=== PATIENT | male | born 1955 | race Caucasian/White ===

== ENCOUNTER 2018-04-02 07:05 | Inpatient (IN) | payer OTHER ==
[2018-04-02] VITALS (8 sets, daily range): BP systolic 100–126; BP diastolic 47–70; PULSE 51–61; RESP 16–18; TEMP 97.7–98.5; O2SAT 96–98
[~2018-04-02] VITALS: Ht 175.3 cm; Wt 88.6 kg
[~2018-04-02 07:05] MED LIST: ADVI200C9 PO; MECL25 PO; PROM25SU8 PO
[2018-04-02] MEDS ORDERED: IOHEXOL 350 MG/ML 100 ML BTL (for Cath Lab) OTHER ONE (07:06)
[2018-04-02] MEDS ORDERED: ASPIRIN 325 MG TAB PO SCH (07:45)
[2018-04-02] MEDS ORDERED: NS 1000P @30 MLS/HR (KVO) IV SCH (07:45)
[2018-04-02] MEDS ORDERED: PRIL20TA2 PO (07:52)
[2018-04-02] MEDS ORDERED: ALEV220T14 PO (07:52)
[2018-04-02] MEDS ORDERED: ISOS30TA3 PO (07:52)
[2018-04-02] MEDS ORDERED: ATOR10TA15 PO (07:52)
[2018-04-02] MEDS ORDERED: METO25TA3 PO (07:52)
[2018-04-02] MEDS ORDERED: ECASA81 PO (07:52)
[2018-04-02] MEDS ORDERED: MULTTAB67 PO (07:52)
[2018-04-02 07:57] LABS: BASOPHIL # 0.1 TH/MM3 (0-0.2); EOSINOPHIL # 0.2 TH/MM3 (0-0.4); HEMATOCRIT 45.6 % (39.0-51.0); HEMOGLOBIN 15.6 GM/DL (13.0-17.0); LYMPH % 32.2 % (9.0-44.0); LYMPHOCYTE # 1.8 TH/MM3 (1.0-4.8); MEAN CORPUSCULAR HEMOGLOBIN 29.2 PG (27.0-34.0); MEAN CORPUSCULAR HGB CONC 34.3 % (32.0-36.0); MEAN PLATELET VOLUME 10.8 FL (7.0-11.0); MONO % 11.2 % (0.0-8.0); MONOCYTE # 0.6 TH/MM3 (0-0.9); NEUT % 52.6 % (16.0-70.0); PLATELET COUNT 161 TH/MM3 (150-450); RED BLOOD COUNT 5.36 MIL/MM3 (4.50-5.90); RED CELL DISTRIBUTION WIDTH 13.4 % (11.6-17.2); WHITE BLOOD COUNT 5.7 TH/MM3 (4.0-11.0)
[2018-04-02] MEDS ORDERED: NITROGLYCERIN INJ 5 ML ONE ×2 (08:04→08:05)
[2018-04-02] MEDS ORDERED: MIDAZOLAM HCL 2 MG/2 ML VIAL ONE ×3 (08:05→09:37)
[2018-04-02] MEDS ORDERED: HEPARIN-NS/PF FLUSH BAG 2,000 ML IV FLUSH ONE (08:05)
[2018-04-02] MEDS ORDERED: VERAPAMIL HCL 5 MG/2 ML VIAL ONE (08:05)
[2018-04-02] MEDS ORDERED: HEPARIN SODIUM - IV 10,000 UNITS/10 ML VIAL ONE (08:05)
[2018-04-02 08:07] LABS: INTERNATIONAL NORMALIZED RATIO 1.1 RATIO; PROTHROMBIN TIME - PATIENT 10.9 SEC (9.8-11.6)
[2018-04-02 08:13] LABS: BICARBONATE 29.9 MEQ/L (21.0-32.0); CALCIUM 8.7 MG/DL (8.5-10.1); CREATININE 1.03 MG/DL (0.60-1.30)
[2018-04-02] MEDS ORDERED: BIVALIRUDIN 250 MG VIAL ONE (08:30)
[2018-04-02] MEDS ORDERED: CANGRELOR TETRASODIUM 50,000 MCG VIAL ONE (08:35)
[2018-04-02] MEDS ORDERED: TICAGRELOR 90 MG TAB PO ONE ×2 (08:58→10:30)
[2018-04-02] MEDS ORDERED: NITROGLYCERIN-D5W 50 MG/250 ML 250 ML ONE (09:53)
[2018-04-02] MEDS ORDERED: MORPHINE SULFATE 10 MG/ML INJ ONE (10:04)
[2018-04-02] MEDS ORDERED: SODIUM CHLOR 0.9% 1000 ML INJ 1,000 ML IV SCH (10:16)
--- NOTE | 2018-04-02 10:26 | CATHPROC ---
[employer] HIS Report Study Information Study Number Admission Scheduled Start Study Start [id number] Apr 02 2018 7:05AM 04/02/2018 Apr 02 2018 7:44AM [place] Service Cardiac Catheterization Admit Source Facility Department Other [facility] - Turbine Technician Physician and Clinical Staff Initial MD Carter, Juan Ramon Dock Coordinator Connor RN, Bhanu Recorder Andra Elmore,RT(R) Scrub Joseph, Samaria,TIERCE FILLER TECH2 Procedures Performed Procedure Location (Site) Vessel Name Coronary Angiograms LCA Left Coronary Coronary Angiograms RCA Right Coronary Drug Eluting Inflatio DIAG Prox Left Coronary Drug Eluting Inflatio LAD Dist Left Coronary Drug Eluting Inflatio LAD Prox Left Coronary L Heart Cath LV Gram-hand inj. LV LV Ventricle PTCA DIAG Prox Left Coronary PTCA LAD Dist Left Coronary PTCA LAD Prox Left Coronary PTCA ADD ON'S Wire insertion Radial (right) Radial Art. Equipment Time Sales Representative Groceries Description Size Mfg Part Number Used/Scraped WIRE, BALANCE MIDDLEWEIGHT [id number] 08:46 [employer] 190CM Used 190CM (JUAN) *[id number] WIRE, BALANCE MIDDLEWEIGHT [id number] 08:46 [employer] 190CM Used 190CM (JUAN) *[id number] TRANSDUCER, TRUWAVE [id number] 07:48 RAND OREILLY * Used W/STOCKCOCK *[id number] BALLOON, 3.0 8MM [place] [facility] [id number] 09:39 [employer] 3.0 8MM Used APEX MR *[id number] [phone] *[id number] 07:48 MEDLINE INDUSTRIES PACK, CCL CUSTOM * Used *[id number] 07:48 MEDLINE PACER PEN, SKIN DUAL W/ RULER * Used *[id number] 09:05 MEDTR[employer]IC BALLOON, 2.0 X 15MM EUPHORA 15MM Used *[id number] 08:52 [employer] BALLOON, 2.5 X 20MM EUPHORA 20MM Used *[id number] BALLOON, 4.0 X 15MM NC [id number] 09:15 MEDTR[employer]IC 15MM Used EUPHORA *[id number] 09:18 MEDTRONIC STENT, 2.0 15MM PATRICA 2.0 X 15MM Used *[id number] 09:37 [employer]IC STENT, 3.0 12MM PATRICA 3.0 12MM Used *[id number] 09:43 [employer]TR[employer]IC STENT, 3.0 8MM PATRICA 3.0 8MM Used *[id number] 08:57 [employer] STENT, 4.0 22MM PATRICA 4.0 22MM Used *[id number] 08:38 MEDTR[employer]IC/AVE EBU 3.5 Z2 GUIDE CATHETER FR 6 Used *[id number] 08:32 [employer] 30 ROSALIA INDEFLATOR Used *[id number] BAND, RADIAL COMPRESSION TR [id number] 09:52 [employer] 29CM Used LARGE 29 *[id number] 07:48 [employer] SHEATH, FR6.5 PRELUDE 11CM FR 6.5 038ACT Used *[id number] 07:48 [employer] WIRE, 3MMJ .035 180CM 180CM Used *[id number] 07:48 NAMIC MANIFOLD, 4 PORT * Used *[id number] 07:48 [employer] OMNIPAQUE, 350 MG, 150ML 150ML [id number] Used 08:32 [employer] OMNIPAQUE, 350 MG, 150ML 150ML [id number] Used 08:32 [employer]ED OMNIPAQUE, 350 MG, 50ML 50ML [id number] Used [id number] 07:48 [employer] BLANKET,WARM AIR CCL * Used *[id number] CATHETER, FR5 OPTITORQUE [id number] 08:17 [employer] FR 5 Used RADIAL TIG 4.0 *[id number] 05-7499 08:42 [employer] CATHETER, FR6 IKARI [place] 3.5 LEFT FR 6 Used *[id number] WIRE, RUNTHROUGH NS FLOPPY [id number] 09:01 [employer] 180CM Used .014 180CM *[id number] Equipment Model, Serial, Lot Number and Expiration Data Description Model Number Serial Number Lot Number Expiration Date STENT, 2.0 15MM PATRICA [id number] 11-09-2019 STENT, 3.0 12MM PATRICA [id number] 12-17-2019 STENT, 3.0 8MM PATRICA [id number] 04-04-2019 STENT, 4.0 22MM PATRICA [id number] 11-04-2019 History: Current Medications Medication Dosage/Unit Route Frequency Last Date/Time Taken ASA Beta Seth History: Allergies Allergy Reaction No Known Allergies History: Risk Factors Family History of Hypertension Dyslipidemia Previous AK Previous Heart Failure Premature CAD No Yes Yes No No Prior Valve Prior PCI Prior CABG Surgery No No No Cerebrovascular Peripheral Artery Chronic Lung On Dialysis Diabetes Disease Disease Disease No No No No No History: Symptoms/Diagnosis Selection Items Chest pain History: Stress Tests Stress or Imaging Studies Performed Yes Standard Exercise Stress Stress Test Result Stress Test Ischemia Risk/Extent Test Yes Positive High Stress Echo No Stress Test SPECT No Stress Test CMR No Cardiac CTA Coronary Calcium Score No No History: Other Current Smoker No Labs Hgb (g/dl) Hct (%) RBC (MIL/MM3) WBC (l/cumm) Platelets (thousands) 11.60-17.00 35.00-51.00 4.00-5.90 4.00-11.00 150.00-450.00 15.6 45.6 5.3 5.7 161 Glucose (mg/dl) BUN (mg/dl) Creatinine (mg/dl) BUN:Creatinine (1:x) 74.00-106.00 7.00-18.00 0.50-1.30 10.00-20.00 97 17 1.0 17 Na (meq/l) K (meq/l) Cl (meq/l) CO2 (mmol/L) Ca (mg/dl) 136.00-145.00 3.50-5.10 98.00-107.00 21.00-32.00 8.50-10.10 141 4.2 107 29.9 8.7 PT (sec) PTT (sec) INR (PTT:PT) 9.80-11.60 24.30-30.10 0.90-1.10 10.9 27.3 1.1 CPK-MB (ng/ML) 0.50-3.60 Not Drawn Medication Medication Total Dose (Bolus/Oral) Medication Total Dosage/Unit 1% XYLOCAINE 20 mL BRILLINTA 180 mg FENTANYL 100 mcg HEPARIN 4000 units MORPHINE 4 mg NTG (IC) 400 mcg OXYGEN 3 l/min RADIAL COCKTAIL 5 mL (Bolus) VERSED 6 mg Medications (Bolus/Oral) Medication Time Given Dosage/Unit Administered By Reason VERSED 04/02/2018 8:11:57 AM 2 mg Connor Bhanu TUCKER 2 mg VERSED given in lab by Bhanu Ryan RN in Left Antecubital via Peripheral IV. FENTANYL 04/02/2018 8:18:40 AM 50 mcg Bhanu Ryan RN 50 mcg FENTANYL given in lab by Bhanu Ryan RN via Peripheral IV. 1% XYLOCAINE 04/02/2018 8:20:01 AM 20 mL Juan Ramon Carter 20 mL 1% XYLOCAINE given in lab by Juan Ramon Carter in Right Radial via Subcutaneous. Ntg 200mcg Verapamil 2.5mg Heparin RADIAL COCKTAIL 04/02/2018 8:21:49 AM 5 mL (Bolus) Juan Ramon Carter 2500U 5 mL (Bolus) RADIAL COCKTAIL given in lab by Juan Ramon Carter via Radial. Using [Solution Name]. Reason: Ntg 200mcg Verapamil 2.5mg Heparin 2500U. VERSED 04/02/2018 8:23:23 AM 1 mg Bhanu Ryan RN 1 mg VERSED given in lab by Bhanu Ryan RN via Peripheral IV. OXYGEN 04/02/2018 8:28:17 AM 3 l/min Bhanu Ryan RN 3 l/min OXYGEN given in lab by Bhanu Ryan RN via Nasal. HEPARIN 04/02/2018 8:47:40 AM 4000 units Bhanu Ryan RN 4000 units HEPARIN given in lab by Bhanu Ryan RN via Peripheral IV. VERSED 04/02/2018 9:05:28 AM 1 mg Bhanu Ryan RN 1 mg VERSED given in lab by Bhanu Ryan RN via Peripheral IV. FENTANYL 04/02/2018 9:06:38 AM 50 mcg Bhanu Ryan RN 50 mcg FENTANYL given in lab by Bhanu Ryan RN via Peripheral IV. NTG (IC) 04/02/2018 9:26:38 AM 100 mcg Samaria Ruiz 100 mcg NTG (IC) given in lab by Samaria Ruiz, TIERCE FILLER TECH2 via Intra-coronary. NTG (IC) 04/02/2018 9:31:16 AM 100 mcg Samaria Ruiz 100 mcg NTG (IC) given in lab by Samaria Ruiz, TIERCE FILLER TECH2 via Intra-coronary. VERSED 04/02/2018 9:37:00 AM 1 mg Bhanu Ryan RN 1 mg VERSED given in lab by Bhanu Ryan RN via Peripheral IV. VERSED 04/02/2018 9:39:12 AM 1 mg Bhanu Ryan RN 1 mg VERSED given in lab by Bhanu Ryan RN via Peripheral IV. NTG (IC) 04/02/2018 9:41:58 AM 100 mcg Samaria Ruiz 100 mcg NTG (IC) given in lab by Samaria Ruiz RRT TECH2 via Intra-coronary. NTG (IC) 04/02/2018 9:48:37 AM 100 mcg Samaria Ruiz 100 mcg NTG (IC) given in lab by Samaria Ruiz TIERCE FILLER TECH2 via Intra-coronary. BRILLINTA 04/02/2018 9:54:45 AM 180 mg Bhanu Ryan RN 180 mg BRILLINTA given in lab by Bhanu Ryan RN in Per mouth via Oral. MORPHINE 04/02/2018 10:05:19 AM 4 mg Bhanu Ryan RN 4 mg MORPHINE given in lab by Bhanu Ryan RN via Peripheral IV. Medication (Drip) Medication Time Given Dosage/Unit Concentration/Unit Diluent (ml) Solution IV Solutions 04/02/2018 8:07:38 AM 0 mL (IV) 500 NaCl .9 IV Solutions given in lab by Bhanu Ryan RN in Left Antecubital via Peripheral IV. Pump/Drip Flow = 20 ml/hr using NaCl .9. KENGREAL BOLUS 04/02/2018 8:48:23 AM 13.5 mL 13.5 mL KENGREAL BOLUS given in lab by Bhanu Ryan RN in Left Antecubital via Peripheral IV. KENGREAL DRIP 04/02/2018 8:49:40 AM 3.991 mcg/kg/min 50 mg 250 NaCl .9 3.991 mcg/kg/min KENGREAL DRIP given in lab by Bhanu Ryan RN via Peripheral IV. Pump/Drip Flow = 10 8 ml/hr using NaCl .9 with a concentration of 50 mg in 250 ml. NITROGLYCERIN DRIP 04/02/2018 10:00:03 AM 5 mcg/min 50 mg 250 D5W 5 mcg/min NITROGLYCERIN DRIP given in lab by Bhanu Ryan RN via Peripheral IV. Pump/Drip Flow = 1.5 ml/hr using D5W with a concentration of 50 mg in 250 ml. Initial Case Assessment Cardiovascular HR Rhythm NIBP Chest Pain 54 reg 107/68 0 Edema Present Skin color Skin None Normal Warm Circulatory - Right Pulses Dorsalis Pedis Femoral Radial 2 2 2 Scale (0,1,2,3,4,d) Scale (0,1,2,3,4,d) Circulatory - Lower Extremities Color Lower Right Normal Neurological State Oriented to time-place- Alert Moves all extremities person Respiration - General Respiration Rate SpO2 (%) (B/min) 11 95 Final Case Assessment Cardiovascular HR Rhythm NIBP Chest Pain 57 reg 96/60 0 Edema Present Skin color Skin None Normal Warm Circulatory - Right Pulses Dorsalis Pedis Femoral Radial 2 2 2 Scale (0,1,2,3,4,d) Scale (0,1,2,3,4,d) Circulatory - Lower Extremities Color Lower Right Normal Neurological State Oriented to time-place- Alert Moves all extremities person Respiration - General Respiration Rate SpO2 (%) O2 (lpm) (B/min) 20 97 3 Chronological Log Time Study Chronological Log 7:59:38 Patient arrived via Bed. 7:59:45 Patient Name, D.O.B, / Armband Verified By R.N. 8:00:34 MD arrived. 8:00:52 Consent signed by the physician and the patient and verified by the Turbine Technician staff. 8:01:56 Pre-op and post- op instructions given; patient acknowledges understanding of instructions. 8:02:10 Verbal Stimulation=2 Physical Stimulation=2 Airway=2 Respiration=2 TOTAL=8. (0=absent, 1=li mited, 2=present) Vitals capture started with the following parameters, Patient=Adult, Interval=5 min, Initial Pr nfcdch=891 mmHg, 8:04:19 Deflation Rate=5 mmHg, Cuff placed on Left Arm 8:04:23 Reference ECG taken 8:04:59 HR=45 bpm, PGQL=492/67 mmhg, SpO2=95 %, Resp=12 B/min, Pain=0, Deena=10, Piañ=2 8:05:15 Allens test performed on the right radial and ulnar artery by crystal ruiz with a positive resul t 8:06:39 Patient has been NPO for Less than 6Hrs. 8:07:27 A # 20 IV was noted in the Antecubital (left). Grade = 0 IV Solutions given in lab by Bhanu Ryan RN in Left Antecubital via Peripheral IV. Pump/Drip F low = 20 ml/hr using NaCl 8:07:38 .9. Assessment: Initial Case, HR=54 BPM, Rhythm=reg, YGAP=654/68 mmhg, Chest Pain=0, Edema=None, Co chas=Normal, Skin = Warm Right Pulses: Harsha Ped=2, Femoral=2, Radial=2 8:08:10 Lower Right Extremities: Color=Normal Neurological: State=Alert, Ox3, LANE Respiration: Resp=11 B/min, SpO2=95 % 8:10:19 HR=49 bpm, LUKP=171/74 mmhg, SpO2=96.0 %, Resp=10 B/min, Pain=0, Deena=10, Piña=2 8:11:57 2 mg VERSED given in lab by Bhanu Ryan RN in Left Antecubital via Peripheral IV. 8:12:13 Right Radial and groin(s) prepped with 2% chlorhexidine, and draped after a 3 min. waiting t gera. Time Out. Correct patient, correct procedure, correct physician, power injector not loaded with contrast with surgical 8:14:16 team present. Time Out Concurred by MD and individual staff in procedure. 8:14:53 HR=53 bpm, RCJC=341/68 mmhg, SpO2=97.0 %, Resp=10 B/min, Pain=0, Deena=10, Piña=2 8:15:47 Pressure channel 1 zeroed. 8:18:40 50 mcg FENTANYL given in lab by Bhanu Ryan RN via Peripheral IV. 8:18:58 Case Start 8:19:01 Verbal Stimulation=2 Physical Stimulation=2 Airway=2 Respiration=2 TOTAL=8. (0=absent, 1=pierre ited, 2=present) 8:19:52 HR=51 bpm, ZLWX=261/68 mmhg, SpO2=97 %, Resp=16 B/min, Pain=0, Deena=10, Piña=2 8:20:01 20 mL 1% XYLOCAINE given in lab by Juan Ramon Carter in Right Radial via Subcutaneous. 8:21:23 Access site was Radial Artery.rt 8:21:29 A wire was inserted via Radial (right). 8:21:37 A SHEATH, FR6.5 PRELUDE 11CM FR 6.5 was advanced into the Radial (right) using the Percutane ous technique. 5 mL (Bolus) RADIAL COCKTAIL given in lab by Juan Ramon Carter via Radial. Using [Solution Name]. Re ason: Ntg 200mcg 8:21:49 Verapamil 2.5mg Heparin 2500U. 8:23:23 1 mg VERSED given in lab by Bhanu Ryan RN via Peripheral IV. A CATHETER, FR5 OPTITORQUE RADIAL TIG 4.0 FR 5 was advanced over a wire. OMNIPAQUE, 350 MG, 150M L 150ML 8:23:35 was used for injections. 8:24:53 HR=55 bpm, MESG=051/64 mmhg, SpO2=95 %, Resp=13 B/min, Pain=0, Deena=10, Piña=2 Recorded Pressure: Ao, HR=55, Condition=Condition 1 8:26:04 (Aorta) Ao 91/59/74 8:26:21 The LCA was injected and visualized at various angles. OMNIPAQUE, 350 MG, 150ML 150ML used. 8:28:17 3 l/min OXYGEN given in lab by Bhanu Ryan RN via Nasal. 8:29:50 HR=49 bpm, XUWU=513/63 mmhg, SpO2=96.0 %, Resp=11 B/min, Pain=0, Deena=10, Piña=2 8:30:51 The RCA was injected and visualized at various angles. OMNIPAQUE, 350 MG, 150ML 150ML used. 8:31:36 OMNIPAQUE, 350 MG, 50ML 50ML and 30 ROSALIA INDEFLATOR added. Recorded Pressure: LV, HR=53, Condition=Condition 1 8:32:54 (Left Ventricle) LV 92/8/16 8:33:15 The LV was manually injected with 9 cc's and visualized. OMNIPAQUE, 350 MG, 150ML 150ML used . Recorded Pressure: LV, Ao, HR=59, Condition=Condition 1 8:33:25 (Left Ventricle) LV 103/8/11, (Aorta) Ao 98/59/77 8:34:51 HR=50 bpm, LKPV=255/65 mmhg, SpO2=97.0 %, Resp=11 B/min, Pain=0, Deena=10, Piña=2 8:36:52 Catheter was removed A XB 3.5 GUIDE CATHETER FR 6 was advanced over a wire. OMNIPAQUE, 350 MG, 150ML 150ML was used f or 8:36:54 injections. After removing the current catheter a EBU 3.5 Z2 GUIDE CATHETER FR 6 was advanced over a WIRE, 3 MMJ .035 8:37:37 180CM 180CM. 8:39:54 HR=50 bpm, MLWN=762/65 mmhg, SpO2=99 %, Resp=13 B/min, Pain=0, Deena=10, Piña=2 After removing the current catheter a CATHETER, FR6 IKARI IL 3.5 LEFT FR 6 was advanced over a W ANMOL, 3MMJ .035 8:41:59 180CM 180CM. 8:44:55 HR=60 bpm, HCBC=880/65 mmhg, Resp=14 B/min, Pain=0, Deena=10, Piña=2 8:46:36 A WIRE, BALANCE MIDDLEWEIGHT 190CM (JUAN) 190CM was inserted via Radial (right). 8:47:40 4000 units HEPARIN given in lab by Bhanu Ryan RN via Peripheral IV. 8:48:23 13.5 mL KENGREAL BOLUS given in lab by Bhanu Ryan RN in Left Antecubital via Peripheral IV . 8:49:27 Interventional wire has crossed the lesion 3.991 mcg/kg/min KENGREAL DRIP given in lab by Bhanu Rayn RN via Peripheral IV. Pump/Drip Flow = 108 ml/hr using 8:49:40 NaCl .9 with a concentration of 50 mg in 250 ml. 8:49:58 HR=51 bpm, PTBC=596/64 mmhg, SpO2=98.0 %, Resp=13 B/min, Pain=0, Deena=10, Piña=2 A BALLOON, 2.5 X 20MM EUPHORA 20MM was inserted over WIRE, BALANCE MIDDLEWEIGHT 190CM (JUAN) 190 CM 8:51:28 via the LAD Prox. 8:52:48 Activated Clotting Time Drawn A BALLOON, 2.5 X 20MM EUPHORA 20MM over a WIRE, BALANCE MIDDLEWEIGHT 190CM (JUAN) 190CM in the L AD 8:53:48 Prox was inflated using a 30 ROSALIA INDEFLATOR at 8 rosalia for 20 sec. A BALLOON, 2.5 X 20MM EUPHORA 20MM over a WIRE, BALANCE MIDDLEWEIGHT 190CM (JUAN) 190CM in the L AD 8:54:33 Prox was inflated using a 30 ROSALIA INDEFLATOR at 14 rosalia for 30 sec. 8:54:55 HR=51 bpm, MRDJ=868/67 mmhg, SpO2=98.0 %, Resp=14 B/min, Pain=0, Deena=10, Piña=2 8:56:09 Balloon Removed. A STENT, 4.0 22MM PATRICA 4.0 22MM was advanced through a CATHETER, FR6 IKARI IL 3.5 LEFT FR 6 over a WIRE, 8:57:00 BALANCE MIDDLEWEIGHT 190CM (JUAN) 190CM. A STENT, 4.0 22MM PATRICA 4.0 22MM was deployed using a 30 ROSALIA INDEFLATOR at 12 atmospheres for 25 seconds in 8:57:19 the LAD Prox. 8:59:22 Delivery device removed 8:59:35 ACT (Normal Range 90-180) = 396 9:00:37 HR=52 bpm, FWBD=244/65 mmhg, SpO2=98.0 %, Resp=14 B/min, Pain=0, Deena=10, Piña=2 9:02:44 A WIRE, RUNTHROUGH NS FLOPPY .014 180CM 180CM was inserted via Radial (right). 9:04:42 runthrough directed down diagonal 9:05:00 HR=52 bpm, FNHU=565/59 mmhg, SpO2=97.0 %, Resp=15 B/min, Pain=0, Deena=10, Piña=2 A BALLOON, 2.0 X 15MM EUPHORA 15MM was inserted over WIRE, RUNTHROUGH NS FLOPPY .014 180CM 180CM via 9:05:15 the DIAG Prox. 9:05:28 1 mg VERSED given in lab by Bhanu Ryan RN via Peripheral IV. 9:06:38 50 mcg FENTANYL given in lab by Bhanu Ryan RN via Peripheral IV. A BALLOON, 2.0 X 15MM EUPHORA 15MM over a WIRE, RUNTHROUGH NS FLOPPY .014 180CM 180CM in the KAREN G 9:08:13 Prox was inflated using a 30 ROSALIA INDEFLATOR at 8 rosalia for 17 sec. A BALLOON, 2.0 X 15MM EUPHORA 15MM over a WIRE, RUNTHROUGH NS FLOPPY .014 180CM 180CM in the KAREN G 9:08:59 Prox was inflated using a 30 ROSALIA INDEFLATOR at 8 rosalia for 20 sec. 9:09:33 The LCA was injected and visualized at various angles. OMNIPAQUE, 350 MG, 150ML 150ML used. 9:09:51 Balloon Removed. 9:09:59 HR=55 bpm, NIBP=97/63 mmhg, SpO2=96.0 %, Resp=9 B/min, Pain=0, Deena=10, Piña=2 A BALLOON, 2.0 X 15MM EUPHORA 15MM was inserted over WIRE, RUNTHROUGH NS FLOPPY .014 180CM 180CM via 9:11:08 the DIAG Prox. A BALLOON, 2.0 X 15MM EUPHORA 15MM over a WIRE, RUNTHROUGH NS FLOPPY .014 180CM 180CM in the KAREN G 9:11:19 Prox was inflated using a 30 ROSALIA INDEFLATOR at 14 rosalia for 34 sec. 9:14:13 Balloon Removed. 9:14:58 HR=58 bpm, NIBP=91/64 mmhg, SpO2=94.0 %, Resp=16 B/min, Pain=0, Deena=10, Piña=2 A BALLOON, 4.0 X 15MM NC EUPHORA 15MM was inserted over WIRE, BALANCE MIDDLEWEIGHT 190CM (JUAN) 9:16:51 190CM via the LAD Prox. A STENT, 2.0 15MM PATRICA 2.0 X 15MM was advanced through a CATHETER, FR6 IKARI IL 3.5 LEFT FR 6 ov er a WIRE, 9:17:38 RUNTHROUGH NS FLOPPY .014 180CM 180CM. 9:19:57 HR=52 bpm, WGGC=324/60 mmhg, SpO2=97.0 %, Resp=16 B/min, Pain=0, Deena=10, Piña=2 A STENT, 2.0 15MM PATRICA 2.0 X 15MM was deployed using a 30 ROSALIA INDEFLATOR at 18 atmospheres for 6 0 seconds 9:21:40 in the DIAG Prox. A BALLOON, 4.0 X 15MM NC EUPHORA 15MM over a WIRE, BALANCE MIDDLEWEIGHT 190CM (JUAN) 190CM in th e 9:22:32 LAD Prox was inflated using a 30 ROSALIA INDEFLATOR at 18 rosalia for 50 sec. 9:23:29 Delivery device removed 9:24:46 The LCA was injected and visualized at various angles. OMNIPAQUE, 350 MG, 150ML 150ML used. 9:25:00 HR=51 bpm, VIGW=401/64 mmhg, SpO2=96 %, Resp=17 B/min, Pain=0, Deena=10, Piña=2 9:26:38 100 mcg NTG (IC) given in lab by Samaria Ruiz, TIERCE FILLER TECH2 via Intra-coronary. 9:27:26 Balloon Removed. 9:30:01 HR=54 bpm, QMMW=426/60 mmhg, SpO2=96.0 %, Resp=17 B/min, Pain=0, Deena=10, Piña=2 9:31:16 100 mcg NTG (IC) given in lab by Samaria Ruiz TIERCE FILLER TECH2 via Intra-coronary. 9:32:29 The LCA was injected and visualized at various angles. OMNIPAQUE, 350 MG, 150ML 150ML used. 9:35:00 HR=60 bpm, ZWCU=117/66 mmhg, SpO2=97.0 %, Resp=19 B/min, Pain=0, Deena=10, Piña=2 A STENT, 3.0 12MM PATRICA 3.0 12MM was advanced through a CATHETER, FR6 IKARI IL 3.5 LEFT FR 6 over a WIRE, 9:36:36 BALANCE MIDDLEWEIGHT 190CM (JUAN) 190CM. 9:37:00 1 mg VERSED given in lab by Bhanu Ryan RN via Peripheral IV. A STENT, 3.0 12MM PATRICA 3.0 12MM was deployed using a 30 ROSALIA INDEFLATOR at 12 atmospheres for 42 seconds in 9:37:10 the LAD Dist. 9:38:09 Delivery device removed A BALLOON, 3.0 8MM NC QUANTUM APEX MR 3.0 8MM was inserted over WIRE, BALANCE MIDDLEWEIGHT 190CM 9:38:32 (JUAN) 190CM via the LAD Dist. 9:39:12 1 mg VERSED given in lab by Bhanu Ryan RN via Peripheral IV. A BALLOON, 3.0 8MM NC QUANTUM APEX MR 3.0 8MM over a WIRE, BALANCE MIDDLEWEIGHT 190CM (JUAN) 190 CM 9:39:55 in the LAD Dist was inflated using a 30 ROSALIA INDEFLATOR at 20 rosalia for 20 sec. 9:40:01 HR=54 bpm, KMCY=469/63 mmhg, SpO2=97.0 %, Resp=17 B/min, Pain=0, Deena=10, Piña=2 9:41:58 100 mcg NTG (IC) given in lab by Samaria Ruiz RRT TECH2 via Intra-coronary. 9:42:21 The LCA was injected and visualized at various angles. OMNIPAQUE, 350 MG, 150ML 150ML used. A STENT, 3.0 8MM PATRICA 3.0 8MM was advanced through a CATHETER, FR6 IKARI IL 3.5 LEFT FR 6 over a WIRE, 9:43:53 BALANCE MIDDLEWEIGHT 190CM (JUAN) 190CM. A STENT, 3.0 8MM PATRICA 3.0 8MM was deployed using a 30 ROSALIA INDEFLATOR at 8 atmospheres for 22 sec onds in the 9:44:05 LAD Dist. 9:45:02 HR=56 bpm, GPFX=766/64 mmhg, SpO2=96.0 %, Resp=23 B/min, Pain=0, Deena=10, Piña=2 9:47:07 Re-inflated the stent balloon in the LAD Dist to 12 ROSALIA for 20 seconds. 9:48:04 Delivery device removed 9:48:37 100 mcg NTG (IC) given in lab by Samaria Ruiz RRT TECH2 via Intra-coronary. 9:49:29 The LCA was injected and visualized at various angles. OMNIPAQUE, 350 MG, 150ML 150ML used. 9:50:42 HR=59 bpm, NIBP=96/60 mmhg, SpO2=95.0 %, Resp=17 B/min, Pain=0, Deena=10, Piña=2 Assessment: Final Case, HR=57 BPM, Rhythm=reg, NIBP=96/60 mmhg, Chest Pain=0, Edema=None, Color= Normal, Skin = Warm Right Pulses: Harsha Ped=2, Femoral=2, Radial=2 9:51:35 Lower Right Extremities: Color=Normal Neurological: State=Alert, Ox3, LANE Respiration: Resp=20 B/min, SpO2=97 %, O2=3 lpm 9:52:17 Wire removed 9:52:19 Catheter was removed 9:53:28 Case End 9:53:38 Catheter(s) removed without difficulty 9:53:50 Sheath removed; pressure applied to access site. Radial Compression Device Used. 15 mLs of air placed in BAND, RADIAL COMPRESSION TR LARGE 29 29C M. Affected 9:53:58 hand ~O2 SATURATION~ % O2 saturation. 9:54:14 Sterile dressing applied to site 9:54:14 No case complications noted. 9:54:16 Cine recording checked. 9:54:20 Bedside Report will be given. 9:54:22 Implantable Device card placed in patient's chart. 9:54:27 Verbal Stimulation=2 Physical Stimulation=2 Airway=2 Respiration=2 TOTAL=8. (0=absent, 1=l imited, 2=present) 9:54:45 180 mg BRILLINTA given in lab by Bhanu Ryan RN in Per mouth via Oral. 9:55:00 HR=54 bpm, KTEO=605/65 mmhg, SpO2=96.0 %, Resp=14 B/min, Pain=0, Deena=10, Piña=2 9:55:06 A Left Heart Cath was performed. 9:55:12 Clinical correlaton risk stratification. 5 mcg/min NITROGLYCERIN DRIP given in lab by Bhanu Ryan RN via Peripheral IV. Pump/Drip Flow = 1.5 ml/hr using 10:00:03 D5W with a concentration of 50 mg in 250 ml. 10:00:05 HR=50 bpm, JHOH=298/69 mmhg, SpO2=97 %, Resp=20 B/min, Pain=0, Deena=10, Piña=2 10:05:19 4 mg MORPHINE given in lab by Bhanu Ryan RN via Peripheral IV. 10:05:41 HR=57 bpm, ALYV=312/71 mmhg, ExY0=795.0 %, Resp=15 B/min, Pain=0, Deena=10, Piña=2 End Study - Contrast Media Used In Study Contrast Total Opened (mL) Total Used (mL) Total Wasted (mL) Omnipaque 150 150 0 End Study - Maximum Contrast Load Max Contrast Load (mL) 450.9 End Study - Radiation Exposure Fluoro Time (minutes) 31.3 End Study - Sheaths Sheaths Pulled By Sheath Hold Time (min) Samaria Ruiz End Study - Patient Disposition Complications Transferred To Interventional Outcome No Outpatient Bed successful
[2018-04-02] MEDS ORDERED: ACETAMINOPHEN 325 MG TAB PO PRN (10:30)
[2018-04-02] MEDS ORDERED: SODIUM CHLORIDE 0.9% FLUSH 10 ML FLUSH IV FLUSH PRN (10:30)
[2018-04-02] MEDS ORDERED: oxyCODONE/ACETAMINOPHEN 5 MG/325 MG TAB PO PRN (10:30)
[2018-04-02] MEDS ORDERED: oxyCODONE/ACETAMINOPHEN 10 MG/325 MG TAB PO PRN (10:30)
[2018-04-02] MEDS ORDERED: ONDANSETRON HCL 4 MG/2 ML VIAL IVP PRN (10:30)
[2018-04-02] MEDS ORDERED: BACITRACIN OINT 0.9 GM PKT TOP ONE (10:30)
[2018-04-02] MEDS ORDERED: MISC INFORMATION XX ONE (10:30)
--- NOTE | 2018-04-02 10:44 | MA ---
cc: Juan Ramon Carter MD DATE: 04/02/2018 PROCEDURE PERFORMED: Left heart catheterization, left ventriculography, coronary angiography, complex balloon angioplasty and stenting of the proximal left anterior descending coronary artery, balloon angioplasty and stenting of the major diagonal branch of the left anterior descending coronary artery, Tandem stenting of the distal left anterior descending coronary artery. COMPLICATIONS: Abrupt vessel closure of the diagonal that was successfully opened. CONTRAST LOAD: 280 mL. BRIEF HISTORY: Barber Cerrato is a 62-year-old man with a history of premature coronary artery disease in his father and hyperlipidemia, who has recently developed unstable angina. He had a grossly positive treadmill test. DESCRIPTION OF PROCEDURE: The patient was brought to the cardiac catheterization lab in fasting state. He was sedated with intravenous Versed and fentanyl. Using 1 percent lidocaine for local anesthesia, a Terumo slender sheath was easily inserted into the right radial artery. Next, a [place] catheter was used to image both coronary arteries in the left ventricle. He had complex disease in the LAD that was severe. The decision was made to proceed with intervention. I tried a XB 3.5 guide and an EBU 0.035 guide, but neither conformed properly to engage the left main. I then went to an Ik[place] 3.5 guide and this engaged the left main quite nicely. I then wired the LAD with a BMW wire. I predilated the proximal LAD using a 2.5 x 20 mm balloon. I then stented the proximal LAD using a 4.0 x 22 mm Emilio that was deployed at 12 atmospheres. The LAD looked good, but the major diagonal branch completely closed at its origin. The patient had chest pain with marked ST elevation, mild hypotension and bradycardia. I then used a Terumo Runthrough wire and with mild difficulty was able to wire the diagonal branch. I then ballooned the diagonal branch several times with a 2.0 balloon. Partial flow was reestablished, but there persisted an ostial lesion of the diagonal with poor flow and persistent ST elevation. I therefore decided I had to stent the diagonal branch. I placed a 4.0 x 15 noncompliant balloon in the LAD and a 2.0 x 15 mm Emilio stent in the diagonal. The stent in the diagonal was positioned so that it covered the ostium. This stent was inflated up to 18 atmospheres. Then, simultaneous with this, the balloon that was in the proximal LAD was inflated to 18 atmospheres. Both balloons were deflated. Nitroglycerin had to be administered. The flow in the diagonal branch came back. The LAD result still looked good with no dissection and good stent apposition. ST segments improved. Blood pressure improved. I then stented the distal LAD using a 3.0 x 12 mm Hiller stent that was deployed at 12 atmospheres. There was still a waist in the center of the balloon. This was treated with a noncompliant 3.0 balloon with resolution, but there was a stenosis just on the proximal edge of the stent, so a second 8 mm 3.0 Emilio stent was placed in overlapping fashion, inflated to 8 atmospheres. The balloon was then advanced a few millimeters and then reinflated to 12 atmospheres. The distal LAD now showed a good result. There was YNES 3 flow now in the LAD and diagonal branch. There was a mid LAD lesion felt to only be about 40-50%, which I decided to leave alone. The patient had some mild residual pain. Procedure was done with IV heparin and intravenous cangrelor and he was loaded with Brilinta at the end of the case. The guide was removed and the Terumo band placed. FINDINGS: 1. Hemodynamics: Left ventricular pressure was 103/8 with an end diastolic pressure of 11. Aortic pressure is 98/59 with a mean of 77. There was no gradient during pullback from the left ventricle to the aorta. 2. Left ventriculography: Left ventriculography shows normal left ventricular function with an EF of 65%. 3. Coronary angiography: Left main coronary artery appears normal. Left anterior descending artery has a proximal long 95% tubular stenosis. The first diagonal branch comes off the proximal edge of this and had about a 50% ostial stenosis. The mid LAD has a smooth 40-50% stenosis and then distally there is a 75% stenosis. Irregularities are seen throughout the vessel. The circumflex artery has irregularities proximally. The major diagonal branch has an eccentric 20% ostial stenosis. The distal circumflex artery appears normal. The right coronary artery demonstrates diffuse disease. Proximally, there is about 25% eccentric stenosis. There is about 35% mid stenosis and then distally is a slightly tortuous tubular stenosis, about 70% in severity. Beyond this is the posterior descending artery branch and small posterolateral branches. 4. Results of stenting: Following stenting of the proximal LAD, the distal LAD and the diagonal branch showed 0% residual stenosis had been achieved in all vessels with jain of YNES 3 flow by the end of the case CONCLUSIONS: 1. Normal left ventricular systolic function. 2. Normal hemodynamics. 3. Two vessel coronary artery disease, which is particularly severe in the left anterior descending. 4. Complex intervention on the proximal left anterior descending complicated by closure of the diagonal branch and requiring stenting of the diagonal branch and kissing balloons. Successful stenting of the distal left anterior descending. PLAN: I am not going to intervene on the right coronary artery at this time. Probably get a nuclear stress test to see how much ischemia he has down the road. He has been loaded with Brilinta. He will stay in the hospital at least overnight. MD THEO Nayak/JUAN CARLOS , 10:12 AM , 10:42 AM
[2018-04-02] MEDS ORDERED: PROMETHAZINE INJ 25 MG/ML VIAL IM PRN (12:15)
--- NOTE | 2018-04-02 19:43 | EKG ---
Date Performed: 04/02/2018 Time Performed: 07:43:28 PTAGE: 62 years EKG: Sinus bradycardia. Normal ECG except for rate Since the PREVIOUS TRACING , no significant change noted PREVIOUS TRACIN08/09/2009 08.48 DOCTOR: JuanR amon Carter Interpretating Date/Time 04/02/2018 19:42:26
[2018-04-02] MEDS: SODIUM CHLORIDE 0.9% FLUSH 10 ML FLUSH IV FLUSH SCH (21:00)
[2018-04-02] MEDS ORDERED: TEMAZEPAM 15 MG CAP PO PRN (21:00)
[2018-04-03] VITALS (19 sets, daily range): BP systolic 108–141; BP diastolic 65–82; PULSE 52–68; RESP 14–18; TEMP 98–98.4; O2SAT 96–97
[2018-04-03 06:24] LABS: AUTOMATED NEUTROPHIL # 7.3 TH/MM3 (1.8-7.7); BASOPHIL % 0.2 % (0.0-2.0); EOSINOPHIL # 0.1 TH/MM3 (0-0.4); EOSINOPHIL % 1.4 % (0.0-4.0); HEMATOCRIT 43.4 % (39.0-51.0); HEMOGLOBIN 14.8 GM/DL (13.0-17.0); LYMPH % 13.9 % (9.0-44.0); LYMPHOCYTE # 1.4 TH/MM3 (1.0-4.8); MEAN CELL VOLUME 85.3 FL (80.0-100.0); MEAN CORPUSCULAR HGB CONC 34.1 % (32.0-36.0); MEAN PLATELET VOLUME 10.7 FL (7.0-11.0); MONO % 9.2 % (0.0-8.0); MONOCYTE # 0.9 TH/MM3 (0-0.9); NEUT % 75.3 % (16.0-70.0); PLATELET COUNT 144 TH/MM3 (150-450); RED BLOOD COUNT 5.09 MIL/MM3 (4.50-5.90); RED CELL DISTRIBUTION WIDTH 13.3 % (11.6-17.2); WHITE BLOOD COUNT 9.8 TH/MM3 (4.0-11.0)
[2018-04-03 06:55] LABS: BICARBONATE 26.2 MEQ/L (21.0-32.0); CALCIUM 8.3 MG/DL (8.5-10.1); CREATININE 0.92 MG/DL (0.60-1.30)
[2018-04-03 06:57] LABS: CHOLESTEROL/ HDL RATIO 2.94 RATIO
--- NOTE | 2018-04-03 08:54 | PD.CARD.PN ---
Subjective Subjective Remarks no angina Objective Medications Current Medications Medications (Trade) Dose Ordered Sig/Sonja Route Start Time Stop Time Status Last Admin (Aspirin) 325 mg ELEMENTARY TUTOR PO 04/02/18 07:45 04/05/18 07:44 (Tylenol) 325 mg Q4H PRN PO 04/02/18 10:30 (Percocet 5-325 Mg) 1 tab Q4H PRN PO 04/02/18 10:30 04/02/18 17:00 (Percocet 10-325 Mg) 1 tab Q4H PRN PO 04/02/18 10:30 (Restoril) 15 mg HS PRN PO 04/02/18 21:00 (Aspirin Chew) 81 mg DAILY PO 04/03/18 09:00 (NS Flush) 2 ml UNSCH PRN IV FLUSH 04/02/18 10:30 (NS Flush) 2 ml BID IV FLUSH 04/02/18 21:00 (Lipitor) 80 mg DAILY PO 04/03/18 09:00 (Phenergan Inj) 12.5 mg Q6H PRN IM 04/02/18 12:15 (Brilinta) 90 mg BID PO 04/03/18 09:00 UNV Vital Signs / I&O Vital Signs Date Time Temp Pulse Resp B/P (MAP) Pulse Ox O2 Delivery O2 Flow Rate FiO2 04/02/18 21:54 60 16 118/60 (79) 97 04/02/18 17:01 58 04/02/18 16:00 58 04/02/18 15:30 98.4 60 18 100/47 (64) 96 04/02/18 15:00 58 04/02/18 14:00 58 04/02/18 13:30 98.5 61 18 111/70 (84) 98 04/02/18 10:22 98 Room Air 04/02/18 10:00 51 110/65 I/O 04/02/18 04/02/18 04/02/18 04/03/18 04/03/18 04/03/18 07:00 15:00 23:00 07:00 15:00 23:00 Intake Total 240 ml 240 ml Output Total 2225 ml 200 ml Balance -1985 ml 40 ml Intake Oral 240 ml 240 ml Output Urine Total 2225 ml 200 ml # Voids 1 # Bowel Movements 0 Physical Exam GENERAL: Well developed, well nourished. No acute distress. HEENT: Jugular venous pressure is normal. CHEST: Lungs clear to auscultation bilaterally. Unlabored respiratory effort. CARDIAC: Regular rate and rhythm without S3, S4, or murmur. ABDOMEN: Soft, nontender, no hepatosplenomegaly. Bowel sounds present. EXTREMITIES: No clubbing, cyanosis, or edema. Right wrist OK, pulse intact Laboratory Laboratory Tests Test 04/03/18 04:42 White Blood Count 9.8 TH/MM3 Red Blood Count 5.09 MIL/MM3 Hemoglobin 14.8 GM/DL Hematocrit 43.4 % Mean Corpuscular Volume 85.3 FL Mean Corpuscular Hemoglobin 29.0 PG Mean Corpuscular Hemoglobin Concent 34.1 % Red Cell Distribution Width 13.3 % Platelet Count 144 TH/MM3 Mean Platelet Volume 10.7 FL Neutrophils (%) (Auto) 75.3 % Lymphocytes (%) (Auto) 13.9 % Monocytes (%) (Auto) 9.2 % Eosinophils (%) (Auto) 1.4 % Basophils (%) (Auto) 0.2 % Neutrophils # (Auto) 7.3 TH/MM3 Lymphocytes # (Auto) 1.4 TH/MM3 Monocytes # (Auto) 0.9 TH/MM3 Eosinophils # (Auto) 0.1 TH/MM3 Basophils # (Auto) 0.0 TH/MM3 CBC Comment DIFF FINAL Differential Comment Blood Urea Nitrogen 12 MG/DL Creatinine 0.92 MG/DL Random Glucose 83 MG/DL Calcium Level 8.3 MG/DL Sodium Level 144 MEQ/L Potassium Level 3.5 MEQ/L Chloride Level 108 MEQ/L Carbon Dioxide Level 26.2 MEQ/L Anion Gap 10 MEQ/L Estimat Glomerular Filtration Rate 84 ML/MIN Total Creatine Kinase 575 U/L Creatine Kinase MB 52.2 NG/ML Creatine Kinase MB % 9.1 % Triglycerides Level 111 MG/DL Cholesterol Level 112 MG/DL LDL Cholesterol 52 MG/DL HDL Cholesterol 38.0 MG/DL Cholesterol/HDL Ratio 2.94 RATIO Assessment and Plan Problem List: (1) Stented coronary artery ICD Codes: Z95.5 - Presence of coronary angioplasty implant and graft Plan: cont ASA 81, Brilinta 90 mg bid (2) Family history of coronary artery disease ICD Codes: Z82.49 - Family history of ischemic heart disease and other diseases of the circulatory system (3) Hyperlipidemia ICD Codes: E78.5 - Hyperlipidemia, unspecified Plan: atorva 80 (4) Non-STEMI (non-ST elevated myocardial infarction) ICD Codes: I21.4 - Non-ST elevation (NSTEMI) myocardial infarction Permanent Comment: Secondary to abrupt closure of his first diagonal jailed by LAD stent with successful PTCA stent of diagonal and kissing balloons LAD/ diagonal. Last Edited By: Juan Ramon Carter MD on April 03, 2018 08:53 (5) Coronary artery disease ICD Codes: I25.10 - Atherosclerotic heart disease of [place] coronary artery without angina pectoris Permanent Comment: LAD and diagonal revascularized. Residual RCA disease to be assessed at a future date. Last Edited By: Juan Ramon Carter MD on April 03, 2018 08:54 Juan Ramon Carter MD April 03, 2018 08:54
[2018-04-03] MEDS: SODIUM CHLORIDE 0.9% FLUSH 10 ML FLUSH IV FLUSH SCH ×2 (09:00→22:18)
[2018-04-03] MEDS ORDERED: ATORVASTATIN 80 MG TAB PO SCH (09:00)
[2018-04-03] MEDS: METOPROLOL TARTRATE 25 MG TAB PO SCH ×2 (10:29→21:00)
[2018-04-03] MEDS: ASPIRIN 81 MG CHEW TAB PO SCH (10:29)
[2018-04-03] MEDS: ISOSORBIDE MONONITRATE 30 MG CR TAB (IMDUR) PO SCH (10:29)
[2018-04-03] MEDS: TICAGRELOR 90 MG TAB PO SCH ×2 (10:30→22:19)
[2018-04-04] VITALS (12 sets, daily range): BP systolic 102–114; BP diastolic 69–71; PULSE 50–62; RESP 16–18; TEMP 97.6–98; O2SAT 96–99
[2018-04-04] MEDS: ISOSORBIDE MONONITRATE 30 MG CR TAB (IMDUR) PO SCH (06:54)
--- NOTE | 2018-04-04 08:25 | EKG ---
Date Performed: 04/03/2018 Time Performed: 04:50:28 PTAGE: 62 years EKG: Sinus rhythm Inferior ST-T changes are nonspecific Borderline ECG PREVIOUS TRACING : 04/02/2018 07.43 DOCTOR: Zhang Chavira Interpretating Date/Time 04/04/2018 08:24:51
[2018-04-04] MEDS: METOPROLOL TARTRATE 25 MG TAB PO SCH (09:13)
[2018-04-04] MEDS: TICAGRELOR 90 MG TAB PO SCH (09:13)
[2018-04-04] MEDS: ASPIRIN 81 MG CHEW TAB PO SCH (09:19)
[2018-04-04] MEDS: SODIUM CHLORIDE 0.9% FLUSH 10 ML FLUSH IV FLUSH SCH (09:21)
[2018-04-04] MEDS ORDERED: ATOR80TA45 PO (09:29)
[2018-04-04] MEDS ORDERED: METO25TA3 PO (09:29)
[2018-04-04] MEDS ORDERED: BRIL90TA PO (09:29)
[2018-04-04] MEDS ORDERED: NITR0.4S SL (09:29)
[2018-04-04] MEDS ORDERED: ISOS30TA3 PO (09:29)
[2018-04-04] MEDS ORDERED: NITROGLYCERIN 0.4 MG SL 25 TABS/BTL SL PRN (09:30)
--- NOTE | 2018-04-04 09:30 | PD.CARD.PN ---
Subjective Subjective Remarks no angina Objective Medications Current Medications Medications (Trade) Dose Ordered Sig/Sonja Route Start Time Stop Time Status Last Admin (Aspirin) 325 mg GRANITE POLISHER PO 04/02/18 07:45 04/05/18 07:44 (Tylenol) 325 mg Q4H PRN PO 04/02/18 10:30 (Percocet 5-325 Mg) 1 tab Q4H PRN PO 04/02/18 10:30 04/02/18 17:00 (Percocet 10-325 Mg) 1 tab Q4H PRN PO 04/02/18 10:30 (Restoril) 15 mg HS PRN PO 04/02/18 21:00 (Aspirin Chew) 81 mg DAILY PO 04/03/18 09:00 04/04/18 09:19 (NS Flush) 2 ml UNSCH PRN IV FLUSH 04/02/18 10:30 (NS Flush) 2 ml BID IV FLUSH 04/02/18 21:00 04/04/18 09:21 (Phenergan Inj) 12.5 mg Q6H PRN IM 04/02/18 12:15 (Brilinta) 90 mg BID PO 04/03/18 09:00 04/04/18 09:13 (Imdur) 30 mg DAILY@07 PO 04/03/18 09:00 04/04/18 06:54 (Lopressor) 12.5 mg Q12HR PO 04/03/18 09:00 04/04/18 09:13 (Lipitor) 40 mg DAILY PO 04/05/18 09:00 (Nitrostat Sl) 0.4 mg Q5M PRN SL 04/04/18 09:30 Vital Signs / I&O Vital Signs Date Time Temp Pulse Resp B/P (MAP) Pulse Ox O2 Delivery O2 Flow Rate FiO2 04/04/18 08:00 56 04/04/18 07:37 97.6 56 16 114/69 (84) 97 04/04/18 07:00 62 04/04/18 06:00 56 04/04/18 05:00 62 04/04/18 04:00 98.0 61 18 107/71 (83) 99 04/04/18 04:00 53 04/04/18 03:00 58 04/04/18 02:00 52 04/04/18 01:00 50 04/04/18 00:00 97.7 59 18 102/71 (81) 96 04/04/18 00:00 51 04/03/18 23:00 52 04/03/18 22:00 56 04/03/18 21:00 54 04/03/18 20:00 98.0 58 18 108/70 (83) 96 04/03/18 20:00 56 04/03/18 19:00 60 04/03/18 18:00 64 04/03/18 17:00 62 04/03/18 16:18 98.0 66 14 110/65 (80) 96 04/03/18 16:00 60 04/03/18 15:00 68 04/03/18 14:00 60 04/03/18 13:00 60 04/03/18 12:00 59 04/03/18 11:30 98.4 59 14 120/69 (86) 04/03/18 11:00 68 04/03/18 10:00 60 I/O 04/03/18 04/03/18 04/03/18 04/04/18 04/04/18 04/04/18 07:00 15:00 23:00 07:00 15:00 23:00 Intake Total 1280 ml Output Total 1350 ml 300 ml Balance -70 ml -300 ml Intake Oral 1280 ml Output Urine Total 1350 ml 300 ml # Bowel Movements 0 Physical Exam GENERAL: Well developed, well nourished. No acute distress. HEENT: Jugular venous pressure is normal. CHEST: Lungs clear to auscultation bilaterally. Unlabored respiratory effort. CARDIAC: Regular rate and rhythm without S3, S4, or murmur. ABDOMEN: Soft, nontender, no hepatosplenomegaly. Bowel sounds present. EXTREMITIES: No clubbing, cyanosis, or edema. Right wrist OK, pulse intact Assessment and Plan Problem List: (1) Stented coronary artery ICD Codes: Z95.5 - Presence of coronary angioplasty implant and graft (2) Family history of coronary artery disease ICD Codes: Z82.49 - Family history of ischemic heart disease and other diseases of the circulatory system (3) Hyperlipidemia ICD Codes: E78.5 - Hyperlipidemia, unspecified (4) Non-STEMI (non-ST elevated myocardial infarction) ICD Codes: I21.4 - Non-ST elevation (NSTEMI) myocardial infarction Permanent Comment: Secondary to abrupt closure of his first diagonal jailed by LAD stent with successful PTCA stent of diagonal and kissing balloons LAD/ diagonal. Last Edited By: Juan Ramon Carter MD on April 03, 2018 08:53 (5) Coronary artery disease ICD Codes: I25.10 - Atherosclerotic heart disease of [place] coronary artery without angina pectoris Permanent Comment: LAD and diagonal revascularized. Residual RCA disease to be assessed at a future date. Last Edited By: Juan Ramon Carter MD on April 03, 2018 08:54 Assessment and Plan stable for discharge. OV 1-2 weeks Juan Ramon Carter MD April 04, 2018 09:30
--- NOTE | 2018-04-04 10:15 | MD ---
cc: Juan Ramon Carter MD DATE OF DISCHARGE: DISCHARGE DIAGNOSES: 1. Severe coronary artery disease. 2. Status post stenting of the proximal left anterior descending, distal left anterior descending and rescue stenting of the first diagonal branch of the left anterior descending. 3. Small non-ST segment elevation myocardial infarction secondary to transient vessel closure of the diagonal branch during percutaneous coronary intervention. 4. Family history of premature coronary artery disease. 5. Hyperlipidemia. 6. Unstable angina. BRIEF HISTORY AND HOSPITAL COURSE: Barber Moore is a 62-year-old man with a family history of premature coronary artery disease and hyperlipidemia, who recently developed unstable angina and flunked his stress test. He was brought into the hospital for cardiac catheterization, where he was found to have severe coronary artery disease. 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 He had critical disease of the LAD as well as significant disease of the right coronary artery. He underwent stenting of the proximal LAD, complicated by abrupt vessel closure of the diagonal branch, which was successfully rescued with stenting of the diagonal branch and requiring kissing balloon inflations. He also has tandem stenting of the distal LAD lesion. This was performed successfully. He had resolution of his angina. He did rule in for a small non-ST segment elevation myocardial infarction with a CPK of 575. He was watched in the hospital for an extra day and was stable, and he is being discharged home. DISCHARGE MEDICATIONS: Include: 1. Aspirin 81 mg daily. 2. Brilinta 90 mg p.o. b.i.d. 3. Atorvastatin 40 mg daily. 4. Metoprolol 25 mg p.o. b.i.d. 5. Imdur 30 mg daily. 6. Nitroglycerin sublingual p.r.n. DISCHARGE INSTRUCTIONS: He is to pursue No strenuous activity. He is to follow a heart healthy diet. He is to only do general activities with his right wrist and arm. He is to followup with Dr. Carter in my office in 1-2 weeks. He is to report any chest pain or chest discomfort or come to the ER. MD THEO Nayak/JUAN CARLOS , 09:34 AM , 10:14 AM
[2018-04-05] MEDS ORDERED: ATORVASTATIN 80 MG TAB PO SCH (09:00)
== END 2018-04-04 11:49 | disposition home or self-care (01) | DRG 246 ==
LOC: HDOC 07:05 → HDIC 07:05 → HDOC 13:23 → HCIS 13:24
PROVIDERS: ADMIT Internal Medicine Cardiovascular Disease; ATTEND Internal Medicine Cardiovascular Disease
PROC: 4A023N7 Measurement of Cardiac Sampling and Pressure, Left Heart, Percutaneous Approach (ICD-10-PCS; 2018-04-02)
PROC: B2151ZZ Fluoroscopy of Left Heart using Low Osmolar Contrast (ICD-10-PCS; 2018-04-02)
PROC: B2111ZZ Fluoroscopy of Multiple Coronary Arteries using Low Osmolar Contrast (ICD-10-PCS; 2018-04-02)
PROC: 027137Z Dilation of Coronary Artery, Two Arteries with Four or More Drug-eluting Intraluminal Devices, Percutaneous Approach (ICD-10-PCS; principal; 2018-04-02 07:30)
DX: I25.110 Atherosclerotic heart disease of native coronary artery with unstable angina pectoris (principal); I21.4 Non-ST elevation (NSTEMI) myocardial infarction; E78.5 Hyperlipidemia, unspecified; Z82.49 Family history of ischemic heart disease and other diseases of the circulatory system
CPT/HCPCS: 80048; 80061; 82550; 82552; 85002; 85025; 85610; 85730; 92928; 92929; 93005; 93458; 99152; 99153; C1725; C1769; C1874; C1887; C1893; C9460; J0583; J1644; J2250; J2270; J3010; J7030; Q9967

== ENCOUNTER 2018-04-06 14:36 | Emergency (ER) | payer OTHER ==
[~2018-04-06] VITALS: Ht 177.8 cm; Wt 88.0 kg
[~2018-04-06 14:36] MED LIST changes: -ADVI200C9 PO; +ATOR80TA45 PO; +BRIL90TA PO; +ECASA81 PO; +ISOS30TA3 PO; -MECL25 PO; +METO25TA3 PO; +MULTTAB67 PO; +NITR0.4S SL; +PRIL20TA2 PO; -PROM25SU8 PO
[2018-04-06 15:30] VITALS: BP 133/75; TEMP 97.8; O2SAT 98
[2018-04-06] MEDS ORDERED: SODIUM CHLOR 0.9% 1000 ML INJ 1,000 ML IV ONE (15:45)
[2018-04-06] MEDS ORDERED: diphenhydrAMINE HCL 50 MG/ML VIAL IV PUSH ONE (15:45)
[2018-04-06] MEDS ORDERED: PROCHLORPERAZINE INJ 10 MG/2 ML VIAL IV PUSH ONE (15:45)
[2018-04-06 15:48] VITALS: BP 125/81; PULSE 57; RESP 15; O2SAT 98
--- NOTE | 2018-04-06 16:47 | PD ---
HPI Chief Complaint: Chest Pain Time Seen by Provider: 15:36 Travel History International Travel<30 days: No Contact w/Intl Traveler<30days: No Traveled to known affect area: No History of Present Illness HPI This is a 62-year-old male who has a history of coronary artery disease who just had a stent placed to the LAD by Dr. Carter on April 02 who comes in to the emergency department with severe headaches that have been going on ever since that catheterization, constant, moderate severity, with no associated vomiting, numbness, or weakness. The headache comes on gradually and is mostly at the back of his head. He has no associated photophobia. He says when the headache is there is debilitating and he cannot function. He thought it had to do with him starting a new blood thinner Brilinta after his catheterization. He also had some changes to his other medications but he is not sure what they were. PFSH Past Medical History Cancer: No Cardiac Catheterization: Yes Cardiovascular Problems: Yes High Cholesterol: Yes Chest Pain: No Coronary Artery Disease: Yes Diabetes: No Diminished Hearing: No Gastrointestinal Disorders: Yes (REFLUX) Glaucoma: No Hepatitis: No Hiatal Hernia: No Hypertension: No Kidney Stones: Yes Musculoskeletal: Yes (HERNIATED CERVICAL DISC) Respiratory: No Integumentary: No Thyroid Disease: No Past Surgical History Coronary Stent: Yes (5 STENTS MARCH 2018) Other Surgery: Yes (LITHOTRIPSY 2007) Social History Alcohol Use: No Tobacco Use: No Substance Use: No Allergies-Medications (Allergen,Severity, Reaction): Coded Allergies: No Known Allergies (Verified Allergy, Unknown, 04/06/18) Reported Meds & Prescriptions Reported Meds & Active Scripts Active Brilinta (Ticagrelor) 90 Mg Tab 90 Mg PO BID 30 Days Nitrostat SL (Nitroglycerin) 0.4 Mg Subl 0.4 Mg SL Q5M PRN 90 Days Isosorbide Mononitrate ER (Isosorbide Mononitrate) 30 Mg Armand 30 Mg PO DAILY@ 07 90 Days Atorvastatin (Atorvastatin Calcium) 80 Mg Tab 40 Mg PO DAILY 90 Days Metoprolol Tartrate 25 Mg Tab 25 Mg PO BID 90 Days Reported Multiple Vitamin 1 Tab 1 Tab PO DAILY Aspirin DR (Aspirin) 81 Mg Tabdr 81 Mg PO DAILY Prilosec (Omeprazole Magnesium) 20 Mg Tab 20 Mg PO DAILY Review of Systems Except as stated in HPI: all other systems reviewed are Neg Physical Exam Narrative GENERAL:Well appearing, no acute distress SKIN: Focused skin assessment warm and dry. HEAD: Atraumatic. Normocephalic. EYES: Pupils equal and round. No injection or drainage. ENT: Moist mucous membranes NECK: Trachea midline. CARDIOVASCULAR: Regular rate and rhythm. No murmur appreciated. RESPIRATORY: Clear to auscultation. Breath sounds equal bilaterally. GASTROINTESTINAL: Abdomen soft, non-tender, nondistended. MUSCULOSKELETAL: No obvious deformities. NEUROLOGICAL: Awake and alert. No obvious cranial nerve deficits. No dysarthria or aphasia. No upper or lower extremity drift. No upper extremity ataxia. PSYCHIATRIC: Appropriate mood and affect; insight and judgment normal. Data Data Last Documented VS Vital Signs Date Time Temp Pulse Resp B/P (MAP) Pulse Ox O2 Delivery O2 Flow Rate FiO2 04/06/18 15:48 57 15 125/81 (96) 98 Room Air 04/06/18 15:[address] Brain W/O Iv Contrast(Rout) (04/06/18 ) ^ Insert Iv (04/06/18 15:43) Prochlorperazine Inj (Compazine Inj) (04/06/18 15:45) Diphenhydramine Inj (Benadryl Inj) (04/06/18 15:45) Sodium Chlor 0.9% 1000 Ml Inj (Ns 1000 M (04/06/18 15:45) Electrocardiogram (04/06/18 15:41) MDM Medical Decision Making Medical Screen Exam Complete: Yes Emergency Medical Condition: Yes Interpretation(s) Afebrile, no tachycardia, normotensive EKG: Sinus bradycardia with no ST changes Last [address] 04/06/18 0000 Signed Impressions: Service Date/Time: Friday, April 06, 2018 16:30 - CONCLUSION: Negative for acute process. Marty Vo MD FACR Differential Diagnosis Intracranial hemorrhage, subarachnoid hemorrhage, migraine headache, medication side effect Narrative Course This is a 62-year-old male who presents to the emergency department with headaches following a cardiac catheterization 4 days ago. Patient is not certain of changes to his medicines but thinks he was either started on or increased on his dose of isosorbide dinitrate. I suspect this is the etiology of his headaches. He has a normal neurologic exam. CT is unremarkable. His time course is not consistent with a subarachnoid hemorrhage. I think patient can safely be discharged. Currently his headache is a 2 out of 10. I asked him to call Dr. Carter tomorrow and discuss the symptoms with him and see if he wants to change his medications. Diagnosis Primary Impression: Drug induced headache Patient Instructions: General Instructions Additional Instructions: If you develop severe worsening headache, persistent vomiting, numbness, weakness, difficulty walking or difficulty talking return to the emergency department immediately. Call Dr. Carter tomorrow and discuss that we think your headaches are due to your Isosorbide Med/Other Pt SpecificInfo: No Change to Meds Disposition: 01 DISCHARGE HOME Condition: Stable Zuleyma Braden MD April 06, 2018 16:47
--- NOTE | 2018-04-06 16:49 | RADRPT ---
EXAM DATE/TIME: 04/06/2018 16:30 [facility] COMPARISON: No previous studies available for comparison. INDICATIONS : Cephalgia RADIATION DOSE: 37.13 CTDIvol (mGy) MEDICAL HISTORY : Cardiovascular disease. Herniated cervical disc SURGICAL HISTORY : Four stents placed five days ago ENCOUNTER: Initial ACUITY: 4 - 6 days PAIN SCALE: 3/10 LOCATION: cranial TECHNIQUE: Multiple contiguous axial images were obtained of the head. Using automated exposure control and adj ustment of the mA and/or kV according to patient size, radiation dose was kept as low as reasonably a chievable to obtain optimal diagnostic quality images. DICOM format image data is available electro nically for review and comparison. FINDINGS: CEREBRUM: The ventricles are normal for age. No evidence of midline shift, mass lesion, hemorrhage or acute in farction. No extra-axial fluid collections are seen. POSTERIOR FOSSA: The cerebellum and brainstem are intact. The 4th ventricle is midline. The cerebellopontine angle i s unremarkable. EXTRACRANIAL: The visualized portion of the orbits is intact. SKULL: The calvaria is intact. No evidence of skull fracture. CONCLUSION: Negative for acute process. Marty Vo MD FACR on April 06, 2018 at 16:46 Board Certified Radiologist. This report was verified electronically.
--- NOTE | 2018-04-07 09:54 | EKG ---
Date Performed: 04/06/2018 Time Performed: 15:41:55 PTAGE: 62 years EKG: SINUS BRADYCARDIA BORDERLINE ECG Compared to PREVIOUS TRACING , the patient is now bradycardic. PREVIOUS TRACIN04/03/2018 04.50 DOCTOR: Geeta Shen Interpretating Date/Time 04/07/2018 09:53:44
== END 2018-04-06 18:10 | disposition home or self-care (01) ==
LOC: NEPC 14:36
DX: R51 Headache (principal); E78.00 Pure hypercholesterolemia, unspecified; K21.9 Gastro-esophageal reflux disease without esophagitis; I25.10 Atherosclerotic heart disease of native coronary artery without angina pectoris
CPT/HCPCS: 70450; 93005; 99284